=== PATIENT | female | born 1960 | race Caucasian/White ===

== ENCOUNTER → 2020-12-19 | Outpatient (CLI) | payer OTHER | LOC: HYPER 07:35 | PROVIDERS: ATTEND Emergency Medicine Emergency Medical Services | DX: L98.422 Non-pressure chronic ulcer of back with fat layer exposed (principal); S31.000D Unspecified open wound of lower back and pelvis without penetration into retroperitoneum, subsequent encounter; R53.1 Weakness; R42 Dizziness and giddiness; M41.26 Other idiopathic scoliosis, lumbar region; D50.8 Other iron deficiency anemias; K21.9 Gastro-esophageal reflux disease without esophagitis; I10 Essential (primary) hypertension; E78.5 Hyperlipidemia, unspecified; J44.9 Chronic obstructive pulmonary disease, unspecified; G89.4 Chronic pain syndrome; F41.9 Anxiety disorder, unspecified; F31.9 Bipolar disorder, unspecified; Z91.81 History of falling; Z97.8 Presence of other specified devices; Z79.899 Other long term (current) drug therapy; X58.XXXD Exposure to other specified factors, subsequent encounter ==

== ENCOUNTER → 2021-01-23 | Outpatient (CLI) | payer OTHER | LOC: HYPER 07:37 | PROVIDERS: ATTEND Emergency Medicine Emergency Medical Services | DX: S31.000D Unspecified open wound of lower back and pelvis without penetration into retroperitoneum, subsequent encounter (principal); L98.422 Non-pressure chronic ulcer of back with fat layer exposed; L84 Corns and callosities; R53.1 Weakness; R42 Dizziness and giddiness; D50.8 Other iron deficiency anemias; E78.5 Hyperlipidemia, unspecified; G89.29 Other chronic pain; I10 Essential (primary) hypertension; J44.9 Chronic obstructive pulmonary disease, unspecified; K21.9 Gastro-esophageal reflux disease without esophagitis; M41.26 Other idiopathic scoliosis, lumbar region; F11.20 Opioid dependence, uncomplicated; F41.9 Anxiety disorder, unspecified; F31.9 Bipolar disorder, unspecified; Z97.8 Presence of other specified devices; X58.XXXD Exposure to other specified factors, subsequent encounter ==